=== PATIENT | male | born 1965 | race Caucasian/White ===

== ENCOUNTER 2016-09-14 08:14 | Emergency (ER) | payer OTHER ==
[~2016-09-14] VITALS: Ht 172.7 cm; Wt 41.3 kg
[~2016-09-14 08:14] MED LIST: ONDA4ODT PO; TRAM50TA3 PO
[2016-09-14 08:19] VITALS: BP 165/101
--- NOTE | 2016-09-14 08:23 | NUR ---
PT TO BED 5
--- NOTE | 2016-09-14 08:27 | NUR ---
PT CAME TO ER DUE TO MID EPIGASTRIC PAIN WITH N/V/D SINCE 0600.SHARP ABDOMINAL PAIN; 10/10 PAIN SCALE;PT STATES HE HAD A WATERY ATOOL YESTERDAY AND THIS MORNING;MEDICAL HX ASTHMA;AAOX4;DENIES CP/SOB AT THIS TIME;POSITIONED FOR COMFORT;NEEDS ATTENDED;SAFETY MEASURES DONE;ALL MONITORS IN PLACED;
--- NOTE | 2016-09-14 08:27 | NUR ---
Note reinaldoone in EDM - 09/14/16 at 0833 by MEDTERENCEF PT CAME TO ER DUE TO MID EPIGASTRIC PAIN WITH N/V/D SINCE 0600.SHARP ABDOMINAL PAIN; 10/10 PAIN SCALE;PT STATES HE HAD A WATERY ATOOL YESTERDAY AND THIS MORNING;DENIES ANY MEDICAL HX;AAOX4;DENIES CP/SOB AT THIS TIME;POSITIONED FOR COMFORT;NEEDS ATTENDED;SAFETY MEASURES DONE;ALL MONITORS IN PLACED;
[2016-09-14] MEDS ORDERED: NACL 0.9% 1,000 ML IV SCH (08:41)
[2016-09-14] MEDS ORDERED: MORPHINE SULFATE 4 MG/ML SYR IVP ONE (08:45)
[2016-09-14] MEDS ORDERED: ONDANSETRON 4 MG/2 ML VIAL IVP ONE (08:45)
[2016-09-14 09:05] LABS: ANION GAP 12.2 (8-16); CALCIUM 9.2 mg/dL (8.5-10.1); CARBON DIOXIDE 26.8 mmol/L (21-32); CREATININE 1.1 mg/dL (0.6-1.3)
[2016-09-14 09:11] LABS: ALBUMIN 4.2 g/dL (3.4-5.0); BASOPHILS # (AUTO) 0.1 K/uL (0.00-0.22); BASOPHILS % (AUTO) 1.1 % (0.0-2.0); EOSINOPHILS # (AUTO) 0.2 K/uL (0-0.4); HEMATOCRIT 50.5 % (36-52); HEMOGLOBIN 16.7 g/dL (12.0-18.0); LYMPHOCYTES # (AUTO) 0.8 K/uL (2.0-11.5); LYMPHOCYTES % (AUTO) 6.8 % (20.5-51.1); MEAN CORPUSCULAR HEMOGLOBIN 31 pg (27-31); MEAN CORPUSCULAR HGB CONC 33 g/dL (33-37); MEAN CORPUSCULAR VOLUME 94 fL (80-94); MONOCYTES # (AUTO) 0.7 K/uL (0.8-1.0); MONOCYTES % (AUTO) 5.6 % (1.7-9.3); NEUTROPHILS % (AUTO) 84.5 % (42.2-75.2); PLATELET COUNT (AUTO) 198 K/uL (140-450); RED BLOOD CELL COUNT(AUTO) 5.38 MIL/uL (4.20-6.10); RED CELL DISTRIBUTION WIDTH 11.8 % (11.6-13.7); TOTAL BILIRUBIN 1.4 mg/dL (0.0-1.0); TOTAL PROTEIN, SERUM 7.1 g/dL (6.4-8.2); WHITE BLOOD COUNT (AUTO) 11.8 K/uL (4.8-10.8)
[2016-09-14 09:58] VITALS: BP 135/86
--- NOTE | 2016-09-14 09:58 | NUR ---
Patient discharged with v/s stable. Written and verbal after care instructions given and explained. Patient alert, oriented and verbalized understanding of instructions. Ambulatory with steady gait. All questions addressed prior to discharge. ID band removed. Patient advised to follow up with PMD. Rx of NORCO, ZOFRAN, MOTRIN given. Patient educated on indication of medication including possible reaction and side effects. Opportunity to ask questions provided and answered.
== END 2016-09-14 09:58 | disposition home or self-care (01) ==
LOC: MED 08:14
DX: R10.13 Epigastric pain (principal); R11.2 Nausea with vomiting, unspecified; J45.909 Unspecified asthma, uncomplicated; Z90.5 Acquired absence of kidney
CPT/HCPCS: 36415; 80053; 83690; 85025; 96361; 96374; 96375; 99284; J2270; J2405; J7030

== ENCOUNTER 2016-09-16 09:12 | Emergency (ER) | payer OTHER ==
[~2016-09-16] VITALS: Ht 172.7 cm; Wt 90.7 kg
[2016-09-16 09:16] VITALS: BP 178/90
--- NOTE | 2016-09-16 09:20 | NUR ---
PT W/C ASSISTED TO BED 5.
[2016-09-16] MEDS ORDERED: NACL 0.9% 1,000 ML IV SCH (09:22)
--- NOTE | 2016-09-16 09:22 | NUR ---
51M BIB SELF C/O MID-ADOMINAL PAIN, SHARP, NON-RADIATING, 10/10 X 1 MONTH; PT C/O NAUSEA/VOMITING, BUT DENIES DIARRHEA AT THIS TIME; ABDOMEN ROUND, FIRM, TENDER, ACTIVE BOWEL SOUNDS X 4 QUADRANTS; PT SEEN ON Saturday09/14/16 FOR SAME S/S; PT A&OX4, PERRLA, BL LUNG SOUNDS CLEAR, RR EVEN/UNLABORED, SKIN IS WARM/DRY/INTACT AT THIS TIME; PT RESTING IN BED W/ HOB ELEVATED AND IN LOWEST POSITION; POSTIONED FOR COMFORT; ER MD MADE AWARE OF STATUS. WILL CONTINUE TO [facility].
[2016-09-16] MEDS ORDERED: ONDANSETRON 4 MG/2 ML VIAL IVP ONE (09:25)
--- NOTE | 2016-09-16 09:35 | NUR ---
Patient being evaluated by physician at bedside.
[2016-09-16] MEDS ORDERED: HYDROmorphone 1 MG/ML AMP IVP ONE (09:40)
[2016-09-16 10:04] LABS: BASOPHILS # (AUTO) 0.1 K/uL (0.00-0.22); BASOPHILS % (AUTO) 1.4 % (0.0-2.0); EOSINOPHILS # (AUTO) 0.1 K/uL (0-0.4); EOSINOPHILS % (AUTO) 1.5 % (0.0-4.0); HEMOGLOBIN 16.5 g/dL (12.0-18.0); LYMPHOCYTES # (AUTO) 0.9 K/uL (2.0-11.5); LYMPHOCYTES % (AUTO) 9.4 % (20.5-51.1); MEAN CORPUSCULAR HEMOGLOBIN 32 pg (27-31); MEAN CORPUSCULAR HGB CONC 33 g/dL (33-37); MEAN CORPUSCULAR VOLUME 96 fL (80-94); MONOCYTES # (AUTO) 0.6 K/uL (0.8-1.0); MONOCYTES % (AUTO) 6.1 % (1.7-9.3); NEUTROPHILS # (AUTO) 8.1 K/uL (1.8-7.7); NEUTROPHILS % (AUTO) 81.6 % (42.2-75.2); PLATELET COUNT (AUTO) 210 K/uL (140-450); RED BLOOD CELL COUNT(AUTO) 5.23 MIL/uL (4.20-6.10); RED CELL DISTRIBUTION WIDTH 12.1 % (11.6-13.7); WHITE BLOOD COUNT (AUTO) 9.8 K/uL (4.8-10.8)
[2016-09-16 10:14] LABS: ALBUMIN 4.3 g/dL (3.4-5.0); ANION GAP 13.1 (8-16); CALCIUM 8.9 mg/dL (8.5-10.1); CREATININE 1.1 mg/dL (0.6-1.3); POTASSIUM 4.1 mmol/L (3.5-5.1); TOTAL BILIRUBIN 1.1 mg/dL (0.0-1.0); TOTAL PROTEIN, SERUM 7.3 g/dL (6.4-8.2)
--- NOTE | 2016-09-16 10:19 | NUR ---
PT TAKEN TO CT VIA GURJEFFERSON ACCOMPANIED BY CONTRACT ADMINISTRATOR.
--- NOTE | 2016-09-16 10:30 | NUR ---
Patient returned from CT.
[2016-09-16 12:05] VITALS: BP 178/90
== END 2016-09-16 12:06 | disposition home or self-care (01) ==
LOC: MED 09:12
DX: R10.13 Epigastric pain (principal); K21.9 Gastro-esophageal reflux disease without esophagitis; J45.909 Unspecified asthma, uncomplicated; Z76.5 Malingerer [conscious simulation]
CPT/HCPCS: 36415; 74176; 80053; 81002; 82150; 83690; 85025; 96361; 96374; 96375; 99285; J1170; J2405; J7030